=== PATIENT | female | born 1960 | race Caucasian/White ===

== ENCOUNTER 2017-07-25 19:46 | Emergency (ER) | payer MEDICAID, OTHER ==
[2017-07-25 20:15] VITALS: BP 150/80; PULSE 78; RESP 18; TEMP 98.4; O2SAT 97
--- NOTE | 2017-07-25 20:26 | C.PDOC ---
History Of Present Illness Patient complains of sore throat since this morning and painful swallowing this afternoon. She denies fever, chills, cough or SOB. Time Seen by Provider: 07/25/17 20:16 Chief Complaint (Nursing): ENT Problem History Per: Patient History/Exam Limitations: None Onset/Duration Of Symptoms: Hrs Current Symptoms Are (Timing): Still Present Past Medical History Reviewed: Historical Data, Nursing Documentation, Vital Signs Vital Signs: Last Vital Signs Temp 98.4 F 07/25/17 20:14 Pulse 78 07/25/17 20:14 Resp 18 07/25/17 20:14 BP 150/80 07/25/17 20:14 Pulse Ox 97 07/25/17 20:26 - Medical History PMH: HTN, Hypercholesterolemia Surgical History: No Surg Hx Family History: States: Unknown Family Hx - Social History Hx Alcohol Use: No Hx Substance Use: No - Immunization History Hx Tetanus Toxoid Vaccination: No Hx Influenza Vaccination: No Hx Pneumococcal Vaccination: No Review Of Systems Constitutional: Negative for: Fever, Malaise Eyes: Negative for: Vision Change, Redness ENT: Positive for: Throat Pain. Negative for: Ear Pain, Nose Congestion Respiratory: Negative for: Cough Gastrointestinal: Negative for: Abdominal Pain Skin: Negative for: Rash Neurological: Negative for: Headache Physical Exam - Physical Exam Appears: Non-toxic, No Acute Distress Skin: Warm, Dry, No Rash Head: Atraumatic, Normacephalic Eye(s): bilateral: Normal Inspection, PERRL, EOMI Ear(s): Bilateral: Normal (no erythema) Nose: Normal Oral Mucosa: Moist Throat: Erythema (bright erythema to pharynx and tonsils), No Exudate, No Drooling, No Mass, No Other Neck: Normal ROM Lymphatic: Normal Exam, No Adenopathy Chest: Symmetrical Cardiovascular: Rhythm Regular, No Murmur Respiratory: Normal Breath Sounds, No Rales, No Rhonchi, No Wheezing Extremity: Bilateral: Atraumatic, Normal ROM Neurological/Psych: Oriented x3, Normal Speech Gait: Steady ED Course And Treatment O2 Sat by Pulse Oximetry: 97 Medical Decision Making Medical Decision Making: Impression: sore throat Plan: Rapid strep Progress: Strep test was negative On reevaluation, patient has no fever and seated comfortably in no distress. She has no fever, difficulty swallowing, drooling, stridor or SOB. Patient stable for discharge. Recommend gargles, lozenges and motrin or tylenol for pain. follow up with primary doctor. Disposition Counseled Patient/Family Regarding: Diagnosis, Need For Followup - Disposition Referrals: Camilo Lopez MD [Staff Provider] - Disposition: HOME/ ROUTINE Disposition Time: 20:55 Condition: GOOD Additional Instructions: Take Tylenol or Motrin alternating every 4-6 hours for Fever 100.4F or higher. Rest and drink plenty of fluids to prevent dehydration Recommend gargles, lozenges and motrin or tylenol for pain. follow up with primary doctor. Prescriptions: Benzocaine/Menthol [Cepacol Sore Throat] 1 wesley MM Q2 #30 wesley Instructions: Pharyngitis (ED) Forms: [facility] (Vietnamese) - POA Present On Arrival: None - Clinical Impression Clinical Impression: Pharyngitis
== END 2017-07-25 21:16 | disposition home or self-care (01) ==
LOC: C.ER 19:46
DX: J02.9 Acute pharyngitis, unspecified (principal)

== ENCOUNTER 2018-05-22 08:28 | Day surgery (SDC) | payer MEDICAID ==
[2018-05-21 14:23] VITALS: BMI 33.3
[2018-05-22] MEDS ORDERED: Lactated Ringer's 500 ML IV ONE (10:27)
[2018-05-22] MEDS ORDERED: Propofol 10 mg/ml Inj (20 ML) ONE (10:27)
[2018-05-22 10:33] VITALS: O2SAT 100
[2018-05-22 11:25] VITALS: TEMP 98.4
[2018-05-22 12:44] LABS: BLOOD UREA NITROGEN 14 mg/dL (7-17); CALCIUM 8.5 mg/dl (8.6-10.4); GFR NON-AFRICAN AMERICAN > 60
[2018-05-22 13:01] VITALS: RESP 15
[2018-05-22 13:04] VITALS: BP 124/67; PULSE 67
== END 2018-05-22 12:59 | disposition home or self-care (01) ==
LOC: C.ENDO 08:28
PROVIDERS: ATTEND Internal Medicine Gastroenterology
DX: D12.8 Benign neoplasm of rectum (principal); Z12.11 Encounter for screening for malignant neoplasm of colon; Z80.0 Family history of malignant neoplasm of digestive organs; K64.1 Second degree hemorrhoids
CPT/HCPCS: 36415; 45380; 80048; 88305; J2001; J2704; J7120